=== PATIENT | male | born 1985 | race Caucasian/White ===

== ENCOUNTER 2016-12-26 11:15 | Emergency (ER) | payer OTHER ==
[~2016-12-26] VITALS: Ht 182.9 cm; Wt 81.6 kg
[2016-12-26] MEDS ORDERED: NO HOME MEDICATIONS (11:35)
[2016-12-26] MEDS ORDERED: AUGM875T27 PO (13:30)
[2016-12-26] MEDS ORDERED: CLARITON D (13:30)
[2016-12-26] MEDS ORDERED: [UNRECOGNIZED DRUG - OTHER] PO (13:32)
[2016-12-26 13:50] VITALS: BP 131/80
== END 2016-12-26 14:00 | disposition home or self-care (01) ==
LOC: M ED 12:48
DX: J32.9 Chronic sinusitis, unspecified (principal)